=== PATIENT | male | born 1940 | race Caucasian/White ===

== ENCOUNTER 2021-09-09 16:19 | Inpatient (IN) ==
[2021-09-09 16:41] LABS: ABG BASE EXCESS 3.6 mmol/L (-2.0-2.0); ABG HCO3 26.3 mmol/L (22-26)
[2021-09-09 16:42] LABS: ABG ALLEN TEST POS
[2021-09-09] MEDS ORDERED: DUONEB 0.5 MG/3 MG (3 mL) NEB ONE ×2 (16:44→16:48)
[2021-09-09] MEDS ORDERED: NS 1,000 ML IV 1,000 ML IV ONE (17:30)
[2021-09-09 17:38] LABS: BASOPHILS # (AUTO) 0.1 X10^3/uL (0.0-0.1); BASOPHILS % (AUTO) 0.7 % (0.2-1.0); EOSINOPHILS % (AUTO) 0.1 % (0.9-2.9); HEMOGLOBIN 13.3 g/dL (13.5-18.0); LYMPHOCYTES # (AUTO) 1.3 X10^3/uL (1.3-2.9); LYMPHOCYTES % (AUTO) 11.8 % (21.0-51.0); MEAN CORPUSCULAR HEMOGLOBIN 31.6 pg (27.0-34.0); MEAN CORPUSCULAR HGB CONC 34.1 g/dL (33.0-35.0); MEAN CORPUSCULAR VOLUME 92.9 fL (80.0-100.0); MEAN PLATELET VOLUME 7.9 fL (7.4-11.0); MONOCYTES # (AUTO) 0.6 x10^3/uL (0.3-0.8); MONOCYTES % (AUTO) 5.6 % (0.0-13.0); NEUTROPHILS # (AUTO) 9.1 x10^3/uL (2.2-4.8); NEUTROPHILS % (AUTO) 81.8 % (42.0-75.0); RED CELL DISTRIBUTION WIDTH 13.4 % (11.6-16.5); WHITE BLOOD COUNT 11.1 X10^3/uL (3.6-10.0)
[2021-09-09] MEDS ORDERED: NS 1,000 ML IV 1,000 ML ONE (17:46)
[2021-09-09 17:51] LABS: ALANINE AMINOTRANSFERASE 60 Units/L (12-78); ALBUMIN 2.9 g/dL (3.4-5.0); ALKALINE PHOSPHATASE 53 Units/L (46-116); ASPARTATE AMINO TRANSFERASE 71 Units/L (15-37); BLOOD UREA NITROGEN 22 mg/dL (7-18); CALCIUM 8.4 mg/dL (8.5-10.1); CARBON DIOXIDE 27.8 mmol/L (21-32); CHLORIDE 98 mmol/L (98-107); COR CA(FOR HYPOALB) 9.3 mg/dL (8.5-10.1); SODIUM 134 mmol/L (136-145); TOTAL PROTEIN 7.3 g/dL (6.4-8.2); eGFR NON BLACK RACES 52 (>60)
--- NOTE | 2021-09-09 18:13 | RAD ---
HISTORYHYPOXIA COVID+STUDYCHEST x-ray, 1 VIEWCOMPARISONNoneFINDINGSProminent bilateral lung infiltrates are likely due to COVID-19 pneumonia. Heart is probably normal in size. Calcification is seen of the aortic arch. Probable small left pleural effusion. No pneumothorax is seen. Patient is slightly rotated to the left.IMPRESSIONLikely prominent bilateral COVID-19 pneumonia.Electronically signed by: Sean Joseph (Sep 09, 2021 18:13:01)
[2021-09-09 18:24] LABS: BILIRUBIN,URINE NEGATIVE (NEGATIVE); BLOOD/HEMOGLOBIN,URINE NEGATIVE (NEGATIVE); GLUCOSE, URINE NEGATIVE (NEGATIVE); KETONES,URINE NEGATIVE (NEGATIVE); LEUKOCYTE ESTERASE ,URINE NEGATIVE (NEGATIVE); NITRITES,URINE NEGATIVE (NEGATIVE); PROTEIN,URINE 2+ (NEGATIVE); UROBILINOGEN,URINE NORMAL (NORMAL)
--- NOTE | 2021-09-09 18:24 | DR.SOBA ---
HPI Time Seen Time Seen by Provider: 09/09/21 17:16 Primary Care Physician Primary Care Physician: MATTHIAS APPLE HPI Comment HPI Comment: An 81 y/o male presenting with SOB > 10 days. He was tested positive for COVID on 09/03/2021 and started on Prednisone, Z-CORNELIO and Hydrochloroquine. He still was not doing well and went to the ED again ([facility]) on 09/07/2021. This time Doxycycline was added to the regimen and more prednisone was given. He has no fever. Complaints Chief Complaint:: TEST POSITIVE ON FRIDAY FOR COVID, FRIDAY CHEST XRAY SHOWED PNEUMONIA. HE ISN'T EATING AND SLEEPING ALL THE TIME. Self Treatment fo Chief Complaint: AZITHROMYCIN 250MG, HYDROXYCHLOROQUINE 200MG,, , PREDNISONE 10MG STARTD FRIDAY, AND PREDNISONE 20MG, DOXYCLYCLINE 100MG STARTED ON FRIDAY COVID-19 Coronavirus risk:travel/contact w/high risk person: Yes Has patient experienced Coronavirus symptoms: Yes Coronavirus symptoms experienced: Coughing and Shortness of Breath Mode of Arrival Mode of Arrival: Wheelchair Timing Onset of Chief Complaint: 09/01/21 PMH PMH Past Medical History: Yes Past Medical History: Alzheimers and Hypertension Past Medical History Comment: tacycardia,hernia Past Surgical History: Yes Past Surgical History Comment: hital hernia Family History History of Family Medical Conditions: No Social History Type of Tobacco Use: None Does any household member use tobacco: No Do you use any recreational Drugs:: No Lives With: Spouse Lives Where: Home Travel Risk Coronavirus risk:travel/contact w/high risk person: Yes Has patient experienced Coronavirus symptoms: Yes Coronavirus symptoms experienced: Coughing and Shortness of Breath Infectious screening In the last 2 months have you had wt loss of >10#?: NO Have you had fever, night sweats or hemotysis?: No Have you traveled outside the country in the last 6 months?: No Isolation: Droplet PE Vital Signs Vitals: Temperature 98.7 F Pulse Rate 99 Respiratory Rate 24 Blood Pressure 127/60 O2 Sat by Pulse Oximetry 88 COURSE Treatment Treatment: The pt. had been seen and examined. His labs. and CXR report were reviewed with him and his spouse with my recommendation for admission for in- house treatment, having failed oupt. therapy. The pt. and the agrees with htis recommendation. However, his spouse voiced that she does not want him treated with REMDESIVIR. I discussed the pt. with out provider on-call today (Dr. CLEMONS) and he agrees to place the pt. into his service using his PCVID protocol. Reevaluation 1st: Improved Education/Counseling Education/Counseling: Patient, Family, Education and Counseling Educated On: Treatment, Diagnosis, Prognosis and Needs for Follow Up ROR Labs Reviewed Laboratory Results Reviewed?: Yes Result Diagrams: 09/09/21 16:41 09/09/21 16:41 Laboratory: WBC 11.1 X10^3/uL (3.6-10.0) H 09/09/21 16:41 RBC 4.20 X10^6/uL (4.7-6.0) L 09/09/21 16:41 Hgb 13.3 g/dL (13.5-18.0) L 09/09/21 16:41 Hct 39.0 % (42.0-54.0) L 09/09/21 16:41 MCV 92.9 fL (80.0-100.0) 09/09/21 16:41 MCH 31.6 pg (27.0-34.0) 09/09/21 16:41 MCHC 34.1 g/dL (33.0-35.0) 09/09/21 16:41 RDW 13.4 % (11.6-16.5) 09/09/21 16:41 Plt Count 325 X10^3/uL (150.0-450.0) 09/09/21 16:41 MPV 7.9 fL (7.4-11.0) 09/09/21 16:41 Neut % (Auto) 81.8 % (42.0-75.0) H 09/09/21 16:41 Lymph % (Auto) 11.8 % (21.0-51.0) L 09/09/21 16:41 [place] % (Auto) 5.6 % (0.0-13.0) 09/09/21 16:41 Eos % (Auto) 0.1 % (0.9-2.9) L 09/09/21 16:41 Baso % (Auto) 0.7 % (0.2-1.0) 09/09/21 16:41 Neut # (Auto) 9.1 x10^3/uL (2.2-4.8) H 09/09/21 16:41 Lymph # (Auto) 1.3 X10^3/uL (1.3-2.9) 09/09/21 16:41 [place] # (Auto) 0.6 x10^3/uL (0.3-0.8) 09/09/21 16:41 Eos # (Auto) 0.0 x10^3/uL (0.0-0.2) 09/09/21 16:41 Baso # (Auto) 0.1 X10^3/uL (0.0-0.1) 09/09/21 16:41 Absolute Nucleated RBC 0.3 /100WBC 09/09/21 16:41 Sample Site Rrad 09/09/21 16:37 ABG pH 7.510 (7.35-7.45) H 09/09/21 16:37 ABG pCO2 33.0 mmHg (35.0-45.0) L 09/09/21 16:37 ABG pO2 46.0 mmHg (80.0-100.0) L* 09/09/21 16:37 ABG HCO3 26.3 mmol/L (22-26) H 09/09/21 16:37 ABG O2 Saturation 86.0 % (90-100) L 09/09/21 16:37 ABG Base Excess 3.6 mmol/L (-2.0-2.0) H 09/09/21 16:37 [place] Test Pos 09/09/21 16:37 A-a Gradient 62.0 mmHg 09/09/21 16:37 FiO2 21.0 09/09/21 16:37 Blood Gas Comments Pt riky well elj 09/09/21 16:37 Sodium 134 mmol/L (136-145) L 09/09/21 16:41 Corrected Sodium TNP 09/09/21 16:41 Potassium 4.2 mmol/L (3.5-5.1) 09/09/21 16:41 Chloride 98 mmol/L (98-107) 09/09/21 16:41 Carbon Dioxide 27.8 mmol/L (21-32) 09/09/21 16:41 BUN 22 mg/dL (7-18) H 09/09/21 16:41 Creatinine 1.40 mg/dL (0.70-1.30) H 09/09/21 16:41 Est GFR (MDRD) Af Amer > 60 (>60) 09/09/21 16:41 Est GFR (MDRD) Non-Af 52 (>60) L 09/09/21 16:41 Glucose 93 mg/dL (65-99) 09/09/21 16:41 Calcium 8.4 mg/dL (8.5-10.1) L 09/09/21 16:41 Corrected Calcium 9.3 mg/dL (8.5-10.1) 09/09/21 16:41 Total Bilirubin 0.50 mg/dL (0.2-1.0) 09/09/21 16:41 AST 71 Units/L (15-37) H 09/09/21 16:41 ALT 60 Units/L (12-78) 09/09/21 16:41 Alkaline Phosphatase 53 Units/L (46-116) 09/09/21 16:41 Total Protein 7.3 g/dL (6.4-8.2) 09/09/21 16:41 Albumin 2.9 g/dL (3.4-5.0) L 09/09/21 16:41 Globulin 4.4 g/dL (2.5-4.5) 09/09/21 16:41 Albumin/Globulin Ratio 0.7 Ratio (1.1-2.1) L 09/09/21 16:41 EKG Rate: 88 [place]: Normal Rhythm: NSR Block: None Hypertrophy: None ST: Normal Opioid Opioid Risk Tool Age (Shady box if 16-45): No History of Preadolescent Sexual Abuse: No Total: 0 Total Score Risk Category: Low Risk Copyright: [facility] predicting aberrant behaviors Diagnosis Discharge Problem: Pneumonia due to 2019-nCoV Respiratory failure with hypoxia Qualifiers: Chronicity: acute Qualified Code(s): J96.01 - Acute respiratory failure with hypoxia Instructions Forms: Precautions for COVID19 [facility] Patient Portal Social Distancing ADDITIONAL NOTES Additional Notes Additional Notes: Name: SERGIO CLEMENT FAcct#: [id number]: [id number] : 1940Sex: MLocation: ER Order Number(s): [id number](s):CHEST, 1 VIEW Ordering Physician: CANDIDO MARTINEZ Primary Care: MATTHIAS APPLE Service Date: 09/09/21 Service Time: 1729 HISTORY HYPOXIA COVID+ STUDY CHEST x-ray, 1 VIEW COMPARISON None FINDINGS Prominent bilateral lung infiltrates are likely due to COVID-19 pneumonia. Heart is probably normal in size. Calcification is seen of the aortic arch. Probable small left pleural effusion. No pneumothorax is seen. Patient is slightly rotated to the left. IMPRESSION Likely prominent bilateral COVID-19 pneumonia. Electronically signed by: Sean Joseph (Sep 09, 2021 18:13:01) Report Electronically signed: 09/09/[id number] CC: Candido Martinez
[2021-09-09 18:50] LABS: APPEARANCE,URINE CLEAR (CLEAR); COLOR,URINE YELLOW (YELLOW)
[2021-09-09 18:51] LABS: BACTERIA,URINE NEGATIVE /HPF (NEGATIVE); RBC,URINE NONE SEEN /HPF (0-3); SQUAMOUS EPITHELIAL CELL,UR RARE /HPF (NEGATIVE)
[2021-09-09] MEDS ORDERED: ROCEPHIN VIAL 2 GRAMS 2 G in NS 100 ML IV + SPIKE MINIBAG* 100 ML IV SCH (18:53)
[2021-09-09] MEDS ORDERED: PHARMACY CONSULT - LOVENOX XX SCH (19:20)
[2021-09-09] MEDS ORDERED: PHARMACY CONSULT - IVERMECTIN XX SCH (19:20)
[2021-09-09] MEDS ORDERED: PERIACTIN TAB 4 MG PO PRN (19:20)
[2021-09-09] MEDS ORDERED: PULMICORT NEB TX 0.5 MG NEB ONE (19:54)
[2021-09-09] MEDS ORDERED: BROVANA ONE (19:54)
[2021-09-09] MEDS ORDERED: ROCEPHIN VIAL 2 GRAMS ONE (20:21)
[2021-09-09] MEDS ORDERED: NS 100 ML IV 100 ML ONE (20:21)
[2021-09-09 20:22] VITALS: BMI 27.8
[2021-09-09] MEDS ORDERED: BROVANA IN SCH (21:00)
[2021-09-09] MEDS ORDERED: HEPARIN SODIUM INJ 5000 UNITS SC SCH (21:00)
[2021-09-09] MEDS ORDERED: PULMICORT NEB TX 0.5 MG NEB SCH (21:00)
[2021-09-09] MEDS: NS 1,000 ML IV 1,000 ML IV SCH (21:12)
[2021-09-09] MEDS: PULMICORT NEB TX 0.5 MG NEB SCH (21:13)
[2021-09-09] MEDS: ROCEPHIN VIAL 2 GRAMS 2 G in NS 100 ML IV 100 ML IV SCH (21:13)
[2021-09-09] MEDS: BROVANA IN SCH (21:13)
[2021-09-09] MEDS: IVERMECTIN PO SCH (21:15)
[2021-09-09] MEDS: PEPCID TAB 40 MG PO SCH (21:16)
[2021-09-09] MEDS: CYTOTEC PO SCH (21:16)
[2021-09-09] MEDS: MELATONIN PO SCH (21:16)
[2021-09-09] MEDS: LOVENOX INJ 100 MG SYR SC SCH (21:17)
[2021-09-09] MEDS: ZINC SULFATE PO SCH (21:17)
[2021-09-09] MEDS: THIAMINE HCL INJ IVP SCH (21:18)
[2021-09-09] MEDS: SOLU-Medrol 125 MG VIAL IVP SCH (21:19)
[2021-09-09] MEDS: PROTONIX INJ 40 MG VIAL IVP SCH (21:20)
[2021-09-09] MEDS: ASCORBIC ACID INJ MULTI-DOSE VIAL 1,500 MG in NS 100 ML IV 100 ML IV SCH (21:54)
[2021-09-10] MEDS: ASCORBIC ACID INJ MULTI-DOSE VIAL 1,500 MG in NS 100 ML IV 100 ML IV SCH ×2 (02:01→09:00)
[2021-09-10] MEDS: SOLU-Medrol 125 MG VIAL IVP SCH ×4 (02:01→20:06)
[2021-09-10 05:24] LABS: BASOPHILS % (AUTO) 0.7 % (0.2-1.0); EOSINOPHILS % (AUTO) 0.1 % (0.9-2.9); HEMATOCRIT 33.6 % (42.0-54.0); HEMOGLOBIN 11.6 g/dL (13.5-18.0); LYMPHOCYTES # (AUTO) 0.4 X10^3/uL (1.3-2.9); LYMPHOCYTES % (AUTO) 5.6 % (21.0-51.0); MEAN CORPUSCULAR HEMOGLOBIN 31.8 pg (27.0-34.0); MEAN CORPUSCULAR HGB CONC 34.5 g/dL (33.0-35.0); MEAN CORPUSCULAR VOLUME 92.3 fL (80.0-100.0); MEAN PLATELET VOLUME 8.1 fL (7.4-11.0); MONOCYTES # (AUTO) 0.2 x10^3/uL (0.3-0.8); NEUTROPHILS # (AUTO) 6.1 x10^3/uL (2.2-4.8); NEUTROPHILS % (AUTO) 90.6 % (42.0-75.0); RED BLOOD COUNT 3.64 X10^6/uL (4.7-6.0); RED CELL DISTRIBUTION WIDTH 13.6 % (11.6-16.5); WHITE BLOOD COUNT 6.7 X10^3/uL (3.6-10.0)
[2021-09-10 05:31] LABS: ALANINE AMINOTRANSFERASE 48 Units/L (12-78); ALBUMIN 2.4 g/dL (3.4-5.0); ALKALINE PHOSPHATASE 47 Units/L (46-116); ASPARTATE AMINO TRANSFERASE 49 Units/L (15-37); BLOOD UREA NITROGEN 19 mg/dL (7-18); CALCIUM 7.3 mg/dL (8.5-10.1); CARBON DIOXIDE 24.3 mmol/L (21-32); CHLORIDE 97 mmol/L (98-107); COR CA(FOR HYPOALB) 8.6 mg/dL (8.5-10.1); COR NA(FOR HYPERGLY) 137 mmol/L (136-145); CREATININE 1.28 mg/dL (0.70-1.30); SODIUM 135 mmol/L (136-145); TOTAL PROTEIN 5.6 g/dL (6.4-8.2); eGFR NON BLACK RACES 57 (>60)
[2021-09-10 06:06] LABS: PLATELET MORPHOLOGY COMMENT NORMAL (NORMAL)
[2021-09-10] MEDS: BROVANA IN SCH ×2 (07:50→20:49)
[2021-09-10] MEDS: PULMICORT NEB TX 0.5 MG NEB SCH ×2 (07:50→20:49)
[2021-09-10] MEDS: THIAMINE HCL INJ IVP SCH ×2 (09:00→20:05)
[2021-09-10] MEDS: PROTONIX INJ 40 MG VIAL IVP SCH ×2 (09:00→20:10)
[2021-09-10] MEDS: LIPITOR TAB 80 MG PO SCH (09:00)
[2021-09-10] MEDS: PEPCID TAB 40 MG PO SCH ×2 (09:00→20:07)
[2021-09-10] MEDS: ZINC SULFATE PO SCH ×2 (09:00→20:05)
[2021-09-10] MEDS: LOVENOX INJ 100 MG SYR SC SCH ×2 (09:00→20:08)
[2021-09-10] MEDS: CYTOTEC PO SCH ×4 (09:00→20:05)
[2021-09-10] MEDS: IVERMECTIN PO SCH (09:00)
[2021-09-10] MEDS: TAB-A-VITE PO SCH (11:05)
[2021-09-10] MEDS: FLOMAX PO SCH (11:05)
[2021-09-10] MEDS: NEURONTIN CAP 300 MG PO SCH (11:06)
[2021-09-10] MEDS: NAMENDA TAB 10 MG PO SCH ×2 (11:06→20:07)
[2021-09-10] MEDS: ASCORBIC ACID INJ MULTI-DOSE VIAL 1,500 MG in NS 50 ML IV 50 ML IV SCH ×2 (15:00→20:04)
[2021-09-10] MEDS ORDERED: LUVOX ONE (19:42)
[2021-09-10] MEDS: MELATONIN PO SCH (20:05)
[2021-09-10] MEDS: ROCEPHIN VIAL 2 GRAMS 2 G in NS 100 ML IV 100 ML IV SCH (20:06)
[2021-09-10] MEDS: LUVOX PO SCH (20:07)
[2021-09-10] MEDS: NS 1,000 ML IV 1,000 ML IV SCH (21:24)
[2021-09-11] MEDS: ASCORBIC ACID INJ MULTI-DOSE VIAL 1,500 MG in NS 50 ML IV 50 ML IV SCH ×4 (03:01→20:16)
[2021-09-11] MEDS: SOLU-Medrol 125 MG VIAL IVP SCH ×4 (03:02→20:19)
[2021-09-11 05:58] LABS: ALANINE AMINOTRANSFERASE 48 Units/L (12-78); ALBUMIN 2.3 g/dL (3.4-5.0); ALKALINE PHOSPHATASE 41 Units/L (46-116); ASPARTATE AMINO TRANSFERASE 41 Units/L (15-37); BLOOD UREA NITROGEN 23 mg/dL (7-18); CALCIUM 7.4 mg/dL (8.5-10.1); CARBON DIOXIDE 23.7 mmol/L (21-32); CHLORIDE 98 mmol/L (98-107); COR CA(FOR HYPOALB) 8.8 mg/dL (8.5-10.1); COR NA(FOR HYPERGLY) 135 mmol/L (136-145); SODIUM 134 mmol/L (136-145); TOTAL PROTEIN 6.1 g/dL (6.4-8.2); eGFR NON BLACK RACES > 60 (>60)
[2021-09-11 05:59] LABS: BASOPHILS % (AUTO) 0.2 % (0.2-1.0); HEMOGLOBIN 11.1 g/dL (13.5-18.0); LYMPHOCYTES # (AUTO) 0.7 X10^3/uL (1.3-2.9); LYMPHOCYTES % (AUTO) 6.2 % (21.0-51.0); MEAN CORPUSCULAR HEMOGLOBIN 31.8 pg (27.0-34.0); MEAN CORPUSCULAR HGB CONC 34.5 g/dL (33.0-35.0); MEAN CORPUSCULAR VOLUME 91.9 fL (80.0-100.0); MEAN PLATELET VOLUME 7.8 fL (7.4-11.0); MONOCYTES # (AUTO) 0.6 x10^3/uL (0.3-0.8); MONOCYTES % (AUTO) 5.2 % (0.0-13.0); NEUTROPHILS # (AUTO) 10.2 x10^3/uL (2.2-4.8); NEUTROPHILS % (AUTO) 88.4 % (42.0-75.0); RED BLOOD COUNT 3.49 X10^6/uL (4.7-6.0); RED CELL DISTRIBUTION WIDTH 13.7 % (11.6-16.5); WHITE BLOOD COUNT 11.6 X10^3/uL (3.6-10.0)
[2021-09-11] MEDS ORDERED: K-RIDER 10 MEQ/NS 100 ML 10 MEQ/100 ML BAG IV PRN (07:36)
[2021-09-11] MEDS ORDERED: KLOR-CON PO PRN (07:36)
[2021-09-11] MEDS ORDERED: POTASSIUM CHLORIDE LIQ 20 MEQ UDC PO PRN (07:36)
[2021-09-11] MEDS ORDERED: POTASSIUM CHL 40 MEQ/NS 0.45% 500 ML IV PRN (07:36)
[2021-09-11] MEDS ORDERED: POTASSIUM CHL 60 MEQ/NS 0.45% 500 ML IV PRN (07:36)
[2021-09-11] MEDS ORDERED: MICRO K EXTEN CAP 10 MEQ PO PRN (07:36)
[2021-09-11] MEDS: PULMICORT NEB TX 0.5 MG NEB SCH ×2 (08:24→20:40)
[2021-09-11] MEDS: BROVANA IN SCH ×2 (08:24→20:40)
[2021-09-11] MEDS: CYTOTEC PO SCH ×4 (08:56→20:18)
[2021-09-11] MEDS: FLOMAX PO SCH (08:56)
[2021-09-11] MEDS: LIPITOR TAB 80 MG PO SCH (08:57)
[2021-09-11] MEDS: IVERMECTIN PO SCH (08:57)
[2021-09-11] MEDS: LUVOX PO SCH ×2 (08:58→20:18)
[2021-09-11] MEDS: NAMENDA TAB 10 MG PO SCH ×2 (08:58→20:21)
[2021-09-11] MEDS: PEPCID TAB 40 MG PO SCH ×2 (08:59→20:19)
[2021-09-11] MEDS: PROTONIX INJ 40 MG VIAL IVP SCH ×2 (08:59→20:20)
[2021-09-11] MEDS: NEURONTIN CAP 300 MG PO SCH (08:59)
[2021-09-11] MEDS: TAB-A-VITE PO SCH (09:00)
[2021-09-11] MEDS: VITAMIN D3 125 mcg (5,000 UNITS) PO SCH (09:00)
[2021-09-11] MEDS: THIAMINE HCL INJ IVP SCH ×2 (09:00→20:19)
[2021-09-11] MEDS: LOVENOX INJ 100 MG SYR SC SCH ×2 (09:01→20:20)
[2021-09-11] MEDS: ZINC SULFATE PO SCH ×2 (09:01→20:18)
[2021-09-11] MEDS: VITAMIN A PO SCH (10:43)
[2021-09-11] MEDS: K-DUR TAB 20 MEQ PO PRN (12:09)
[2021-09-11] MEDS: NS 1,000 ML IV 1,000 ML IV SCH (20:16)
[2021-09-11] MEDS: MELATONIN PO SCH (20:19)
[2021-09-11] MEDS: ROCEPHIN VIAL 2 GRAMS 2 G in NS 100 ML IV 100 ML IV SCH (20:21)
[2021-09-11] MEDS ORDERED: RESTORIL CAP 15 MG PO PRN (20:44)
[2021-09-12] MEDS: SOLU-Medrol 125 MG VIAL IVP SCH (02:11)
[2021-09-12] MEDS: ASCORBIC ACID INJ MULTI-DOSE VIAL 1,500 MG in NS 50 ML IV 50 ML IV SCH (02:11)
[2021-09-12] MEDS ORDERED: TYLENOL 325 MG TAB PO ONE (04:23)
[2021-09-12] MEDS: TYLENOL 325 MG TAB PO PRN (05:10)
[2021-09-12 06:26] LABS: BASOPHILS % (AUTO) 0.1 % (0.2-1.0); HEMATOCRIT 30.4 % (42.0-54.0); HEMOGLOBIN 10.7 g/dL (13.5-18.0); LYMPHOCYTES # (AUTO) 0.5 X10^3/uL (1.3-2.9); LYMPHOCYTES % (AUTO) 4.6 % (21.0-51.0); MEAN CORPUSCULAR HEMOGLOBIN 32.1 pg (27.0-34.0); MEAN CORPUSCULAR VOLUME 91.8 fL (80.0-100.0); MEAN PLATELET VOLUME 7.7 fL (7.4-11.0); MONOCYTES # (AUTO) 0.5 x10^3/uL (0.3-0.8); MONOCYTES % (AUTO) 4.4 % (0.0-13.0); NEUTROPHILS # (AUTO) 10.4 x10^3/uL (2.2-4.8); NEUTROPHILS % (AUTO) 90.9 % (42.0-75.0); RED BLOOD COUNT 3.31 X10^6/uL (4.7-6.0); RED CELL DISTRIBUTION WIDTH 13.5 % (11.6-16.5); WHITE BLOOD COUNT 11.4 X10^3/uL (3.6-10.0)
[2021-09-12 06:44] LABS: ALANINE AMINOTRANSFERASE 59 Units/L (12-78); ALBUMIN 2.2 g/dL (3.4-5.0); ALKALINE PHOSPHATASE 44 Units/L (46-116); ASPARTATE AMINO TRANSFERASE 43 Units/L (15-37); BLOOD UREA NITROGEN 25 mg/dL (7-18); CALCIUM 7.2 mg/dL (8.5-10.1); CARBON DIOXIDE 22.9 mmol/L (21-32); CHLORIDE 100 mmol/L (98-107); COR CA(FOR HYPOALB) 8.6 mg/dL (8.5-10.1); COR NA(FOR HYPERGLY) 134 mmol/L (136-145); CREATININE 1.06 mg/dL (0.70-1.30); SODIUM 133 mmol/L (136-145); TOTAL PROTEIN 5.8 g/dL (6.4-8.2); eGFR NON BLACK RACES > 60 (>60)
[2021-09-12 07:09] LABS: PLATELET MORPHOLOGY COMMENT NORMAL (NORMAL)
[2021-09-12] MEDS: PROTONIX INJ 40 MG VIAL IVP SCH ×2 (08:12→20:21)
[2021-09-12] MEDS: THIAMINE HCL INJ IVP SCH ×2 (08:12→20:20)
[2021-09-12] MEDS: K-DUR TAB 20 MEQ PO PRN ×2 (08:13→20:19)
[2021-09-12] MEDS: CYTOTEC PO SCH ×4 (08:14→20:22)
[2021-09-12] MEDS: IVERMECTIN PO SCH (08:14)
[2021-09-12] MEDS: TAB-A-VITE PO SCH (08:14)
[2021-09-12] MEDS: NAMENDA TAB 10 MG PO SCH ×2 (08:14→20:22)
[2021-09-12] MEDS: VITAMIN A PO SCH (08:15)
[2021-09-12] MEDS: ZINC SULFATE PO SCH ×2 (08:15→20:20)
[2021-09-12] MEDS: PEPCID TAB 40 MG PO SCH ×2 (08:16→20:21)
[2021-09-12] MEDS: NEURONTIN CAP 300 MG PO SCH (08:16)
[2021-09-12] MEDS: LUVOX PO SCH ×2 (08:16→20:19)
[2021-09-12] MEDS: VITAMIN D3 125 mcg (5,000 UNITS) PO SCH (08:17)
[2021-09-12] MEDS: LIPITOR TAB 80 MG PO SCH (08:17)
[2021-09-12] MEDS: FLOMAX PO SCH (08:20)
[2021-09-12] MEDS: NS 1,000 ML IV 1,000 ML with ASCORBIC ACID INJ MULTI-DOSE VIAL 6,000 MG IV SCH ×2 (08:44)
[2021-09-12] MEDS: SOLU-Medrol 40 MG VIAL IVP SCH ×3 (08:44→20:20)
[2021-09-12] MEDS: BROVANA IN SCH ×2 (08:51→20:37)
[2021-09-12] MEDS: PULMICORT NEB TX 0.5 MG NEB SCH ×2 (08:51→20:37)
[2021-09-12] MEDS ORDERED: MAGNESIUM SULFATE 1 GRAM/100 mL PREMIX 1 G/100 ML BAG IV PRN (09:54)
[2021-09-12] MEDS: LOVENOX INJ 100 MG SYR SC SCH ×2 (10:35→20:20)
[2021-09-12] MEDS: ZESTRIL TAB 40 MG PO SCH (12:02)
[2021-09-12] MEDS ORDERED: NS 500 ML IV 500 ML IV PRN (20:17)
[2021-09-12] MEDS ORDERED: NS 500 ML IV 500 ML IV ONE (20:17)
[2021-09-12] MEDS: MELATONIN PO SCH (20:19)
[2021-09-12] MEDS: ROCEPHIN VIAL 2 GRAMS 2 G in NS 100 ML IV 100 ML IV SCH (20:20)
[2021-09-13] MEDS: TYLENOL 325 MG TAB PO PRN (02:52)
[2021-09-13] MEDS: SOLU-Medrol 40 MG VIAL IVP SCH (03:00)
[2021-09-13 05:43] LABS: BASOPHILS % (AUTO) 0.2 % (0.2-1.0); EOSINOPHILS % (AUTO) 0.1 % (0.9-2.9); HEMATOCRIT 31.5 % (42.0-54.0); LYMPHOCYTES # (AUTO) 0.5 X10^3/uL (1.3-2.9); LYMPHOCYTES % (AUTO) 3.6 % (21.0-51.0); MEAN CORPUSCULAR HEMOGLOBIN 32.2 pg (27.0-34.0); MEAN CORPUSCULAR HGB CONC 34.8 g/dL (33.0-35.0); MEAN CORPUSCULAR VOLUME 92.5 fL (80.0-100.0); MEAN PLATELET VOLUME 7.4 fL (7.4-11.0); MONOCYTES # (AUTO) 0 x10^3/uL (0.3-0.8); MONOCYTES % (AUTO) 0.2 % (0.0-13.0); NEUTROPHILS # (AUTO) 12.1 x10^3/uL (2.2-4.8); NEUTROPHILS % (AUTO) 95.9 % (42.0-75.0); RED CELL DISTRIBUTION WIDTH 13.4 % (11.6-16.5); WHITE BLOOD COUNT 12.6 X10^3/uL (3.6-10.0)
[2021-09-13 05:47] LABS: ALANINE AMINOTRANSFERASE 87 Units/L (12-78); ALBUMIN 2.2 g/dL (3.4-5.0); ALKALINE PHOSPHATASE 53 Units/L (46-116); ASPARTATE AMINO TRANSFERASE 78 Units/L (15-37); BLOOD UREA NITROGEN 29 mg/dL (7-18); CALCIUM 7.2 mg/dL (8.5-10.1); CARBON DIOXIDE 23.6 mmol/L (21-32); CHLORIDE 102 mmol/L (98-107); COR CA(FOR HYPOALB) 8.6 mg/dL (8.5-10.1); COR NA(FOR HYPERGLY) 136 mmol/L (136-145); SODIUM 135 mmol/L (136-145); TOTAL PROTEIN 5.7 g/dL (6.4-8.2); eGFR NON BLACK RACES > 60 (>60)
[2021-09-13 06:05] LABS: PLATELET MORPHOLOGY COMMENT NORMAL (NORMAL)
[2021-09-13] MEDS: BROVANA IN SCH (08:50)
[2021-09-13] MEDS: PULMICORT NEB TX 0.5 MG NEB SCH (08:50)
[2021-09-13] MEDS ORDERED: DECADRON TAB PO SCH (09:00)
[2021-09-13] MEDS ORDERED: CARDIZEM CD 240 MG 24-HR PO SCH (09:00)
[2021-09-13] MEDS: NS 1,000 ML IV 1,000 ML with ASCORBIC ACID INJ MULTI-DOSE VIAL 6,000 MG IV SCH ×2 (09:00)
[2021-09-13] MEDS ORDERED: ELIQUIS PO SCH (09:00)
[2021-09-13] MEDS: CYTOTEC PO SCH ×2 (09:58→15:06)
[2021-09-13] MEDS: IVERMECTIN PO SCH (09:59)
[2021-09-13] MEDS: FLOMAX PO SCH (09:59)
[2021-09-13] MEDS: ZINC SULFATE PO SCH (10:00)
[2021-09-13] MEDS: PROTONIX INJ 40 MG VIAL IVP SCH (10:00)
[2021-09-13] MEDS: THIAMINE HCL INJ IVP SCH (10:00)
[2021-09-13] MEDS: ZESTRIL TAB 40 MG PO SCH (10:00)
[2021-09-13] MEDS: LIPITOR TAB 80 MG PO SCH (10:00)
[2021-09-13] MEDS: NAMENDA TAB 10 MG PO SCH (10:00)
[2021-09-13] MEDS: PEPCID TAB 40 MG PO SCH (10:00)
[2021-09-13] MEDS: VITAMIN D3 125 mcg (5,000 UNITS) PO SCH (10:00)
[2021-09-13] MEDS: NEURONTIN CAP 300 MG PO SCH (10:00)
[2021-09-13] MEDS: VITAMIN A PO SCH (10:00)
[2021-09-13] MEDS: TAB-A-VITE PO SCH (10:00)
[2021-09-13] MEDS: LUVOX PO SCH (10:00)
[2021-09-13 15:11] VITALS: BP 149/79
== END 2021-09-13 14:45 | disposition home health service (06) | DRG 177 ==
LOC: ER 16:26 → ICU 18:56
PROVIDERS: ADMIT Obstetrics & Gynecology Obstetrics; ATTEND Obstetrics & Gynecology Obstetrics
DX: J12.82 Pneumonia due to coronavirus disease 2019; R79.82 Elevated C-reactive protein (CRP); R06.02 Shortness of breath; R73.09 Other abnormal glucose; I10 Essential (primary) hypertension; U07.1 COVID-19; F03.90 Unspecified dementia, unspecified severity, without behavioral disturbance, psychotic disturbance, mood disturbance, and anxiety

== ENCOUNTER 2022-01-07 10:58 | Observation (INO) ==
[2022-01-07 11:09] VITALS: BMI 27.4
--- NOTE | 2022-01-07 12:52 | DR.DIZZY ---
HPI Time seen Time Seen by Provider: 01/07/22 12:52 PCP Primary Care Physician: VALARIE Underwood HPI Comment HPI Comment: PATIENT IS 81YR OLD MALE IN ER WITH DIZZINESS AND LOW BP TIMES ONE DAY. HISTORY HYPERTENSION. TOOK BP MED LAST NIGHT. DENIES TRAUMA, HEADACHE OR FEVER. NO NAUSEA, VOMITING OR DIARRHEA. NO DYSURIA. COUGH OR CONGESTION. HAVING 4/10 ACHING PAIN LEFT ARM AND SHOULDER. Complaint Chief Complaint Doctor Comments: DIZZINESS, WEAKNESS AND LOW BLOOD PRESSURE TIMES ONE DAY. Chief Complaint:: "feeling weak and dizzy, low blood pressure x 1 day" Self Treatment fo Chief Complaint: liquid IV Nurses Notes Reviewed Nurses Notes Review: Yes Source History Provided: Patient and Significant Other Mode of Arrival Mode of Arrival: Wheelchair Timing Onset of Chief Complaint: 01/06/22 Came on: Suddenly Onset of Symptoms Start Date: 03/08/22 Duration Duration: Constant How lon Duration: Days Location of Weakness Weakness Location: Generalized Context Onset: At rest Does pt take pot. toxic medication?: No Stroke Symptoms: None Modifying factors Worsens: Other (EXERTION.) Associated signs and symptoms Associated Signs and Symptoms: Near Syncope, Weak and Other (DIZZY.) PMH PMH Past Medical History: Yes Past Medical History: Alzheimers, Hypertension and Ventricular Tachycardia Past Surgical History: Yes Past Surgical History Comment: hernia Family History History of Family Medical Conditions: No Family Medical History: Coronary Artery Disease and Hypertension Social History Does patient currently use any type of tobacco product: No Have you used tobacco products in the last 12 months: No Type of Tobacco Use: None Does any household member use tobacco: No Alcohol Use: Occasionally Do you use any recreational Drugs:: No Lives With: Spouse Lives Where: Home Infectious screening In the last 2 months have you had wt loss of >10#?: NO Have you had fever, night sweats or hemotysis?: No Have you traveled outside the country in the last 6 months?: No Isolation: Standard ROS Review of Systems Constitutional: See HPI, Weakness and Fatigue; negative Fever Eyes: No Symptoms Reported and See HPI ENTM: No Symptoms Reported and See HPI Respiratoy: No Symptoms Reported and See HPI; negative Moist Cough, Short of Breath or Wheezing Cardiovascular: See HPI; negative Chest Pain or Syncope (NEAR SYNCOPY.) Gastrointestinal/Abdominal: No Symptoms Reported and See HPI; negative Abdominal Pain, Diarrhea, Nausea or Vomiting Genitourinary: No Symptoms Reported and See HPI; negative Dysuria or Hematuria Neurological: See HPI, Weakness and Dizziness; negative Headache Musculoskeletal: See HPI and Back Pain; negative Muscle Pain Integumentary: No Symptoms Reported and See HPI; negative Rash or Juandice Hematologic/Lymphatic: No Symptoms Reported and See HPI; negative Easy Bruising Endocrine: No Symptoms Reported and See HPI; negative Increased Thirst or Increa sed Urine Psychiatric: No Symptoms Reported and See HPI All Other Systems: Reviewed and Negative PE Vital Signs Vitals: Temperature 97.2 F Pulse Rate 69 Respiratory Rate 20 Blood Pressure [Right Arm] 133/61 Blood Pressure 113/64 O2 Sat by Pulse Oximetry 96 General Limitations: No Limitations General Appearance: Alert and In No Apparent Distress Head Head Exam: Normal Inspection and Atraumatic Eyes Eye exam: Normal Appearance ENT ENT Exam: Normal Exam, Normal Oropharynx and Normal External Ear Exam Neck Neck Exam: Normal Inspection and Full ROM Chest Chest Inspection: Normal Inspection Respiratory Respiratory Exam: Normal Lung Sounds Bilat Cardiovascular Cardiovascular Exam: Regular Rate and Normal Rhythm Abdominal Exam Abdominal Exam: Normal Inspection, Normal Bowel Sounds and Soft Rectal Rectal Exam: Deferred Extremeties Extremities Exam: Normal Inspection and Full ROM Back Back Exam: Normal Inspection and Full ROM Neurologic Neurological Exam: Alert and Oriented X3 Patient Oriented To: Person, Place and Time Speech: Fluid Speech Cranial Nerve Exam: EOM Function (II, III, IV, ): Normal, Gag reflex (XI): Normal and Tongue Deviation: Normal Motor Strength - LUE: 5/5 Motor Strength - RUE: 5/5 Motor Strength - LLE: 5/5 Motor Strength - RLE: 5/5 Upper Motor Neuron Exam: Babinski Sign: Normal Psychiatric Psychiatric Exam: Normal Affect and Normal Mood Skin Skin Exam: Warm, Dry, Intact and Normal Color MDM Differential Diagnosis Differential Diagnosis: Anemia, CVA, Dehydration, Dysrhythmia, Electrolyte disorder, Hypoglycemia, Labyrinthitis, Myocardial infarction and TIA COURSE Treatment Treatment: SEE ORDERS DONE WHILE PATIENT WAS IN ER. Consultation Consultation Comments: DISCUSSED PATIENT WITH DR. NICHOLAS. HR WILL ADMIT PATIENT. Education/Counseling Education/Counseling: Patient and Family Educated On: Treatment and Diagnosis ROR Labs Reviewed Laboratory Results Reviewed?: Yes Result Diagrams: 01/09/22 04:43 01/09/22 11:09 Laboratory: WBC 8.4 X10^3/uL (3.6-10.0) 01/07/22 13:45 RBC 4.17 X10^6/uL (4.7-6.0) L 01/07/22 13:45 Hgb 13.4 g/dL (13.5-18.0) L 01/07/22 13:45 Hct 39.6 % (42.0-54.0) L 01/07/22 13:45 MCV 94.9 fL (80.0-100.0) 01/07/22 13:45 MCH 32.1 pg (27.0-34.0) 01/07/22 13:45 MCHC 33.9 g/dL (33.0-35.0) 01/07/22 13:45 RDW 13.2 % (11.6-16.5) 01/07/22 13:45 Plt Count 211 X10^3/uL (150.0-450.0) 01/07/22 13:45 MPV 9.1 fL (7.4-11.0) 01/07/22 13:45 Neut % (Auto) 42.9 % (42.0-75.0) 01/07/22 13:45 Lymph % (Auto) 46.0 % (21.0-51.0) 01/07/22 13:45 [place] % (Auto) 8.8 % (0.0-13.0) 01/07/22 13:45 Eos % (Auto) 1.2 % (0.9-2.9) 01/07/22 13:45 Baso % (Auto) 1.1 % (0.2-1.0) H 01/07/22 13:45 Neut # (Auto) 3.6 x10^3/uL (2.2-4.8) 01/07/22 13:45 Lymph # (Auto) 3.9 X10^3/uL (1.3-2.9) H 01/07/22 13:45 [place] # (Auto) 0.7 x10^3/uL (0.3-0.8) 01/07/22 13:45 Eos # (Auto) 0.1 x10^3/uL (0.0-0.2) 01/07/22 13:45 Baso # (Auto) 0.1 X10^3/uL (0.0-0.1) 01/07/22 13:45 Absolute Nucleated RBC 0.0 /100WBC 01/07/22 13:45 Sodium 139 mmol/L (136-145) 01/07/22 13:45 Corrected Sodium TNP 01/07/22 13:45 Potassium 4.5 mmol/L (3.5-5.1) 01/07/22 13:45 Chloride 100 mmol/L (98-107) 01/07/22 13:45 Carbon Dioxide 32.6 mmol/L (21-32) H 01/07/22 13:45 BUN 29 mg/dL (7-18) H 01/07/22 13:45 Creatinine 1.59 mg/dL (0.70-1.30) H 01/07/22 13:45 Est GFR (MDRD) Af Amer 54 (>60) L 01/07/22 13:45 Est GFR (MDRD) Non-Af 45 (>60) L 01/07/22 13:45 Glucose 103 mg/dL (65-99) H 01/07/22 13:45 Calcium 10.0 mg/dL (8.5-10.1) 01/07/22 13:45 Corrected Calcium TNP 01/07/22 13:45 Total Bilirubin 0.30 mg/dL (0.2-1.0) 01/07/22 13:45 AST 27 Units/L (15-37) 01/07/22 13:45 ALT 39 Units/L (12-78) 01/07/22 13:45 Alkaline Phosphatase 71 Units/L (46-116) 01/07/22 13:45 Creatine Kinase 85 Units/L (39-308) 01/07/22 13:45 CK-MB (CK-2) < 1.0 ng/mL (0-4.0) 01/07/22 13:45 CK/CKMB % Calc 1.2 % (<4) 01/07/22 13:45 Troponin I High Sens 10.4 ng/L (4.0-60.0) 01/07/22 13:45 B-Natriuretic Peptide 88.3 pg/mL (0-79) H 01/07/22 13:45 Total Protein 7.2 g/dL (6.4-8.2) 01/07/22 13:45 Albumin 3.9 g/dL (3.4-5.0) 01/07/22 13:45 Globulin 3.3 g/dL (2.5-4.5) 01/07/22 13:45 Albumin/Globulin Ratio 1.2 Ratio (1.1-2.1) 01/07/22 13:45 Specimen Type Clean catch urine 01/07/22 13:30 Urine Color Yellow (YELLOW) 01/07/22 13:30 Urine Appearance Clear (CLEAR) 01/07/22 13:30 Urine pH 6.5 (5.0 - 8.0) 01/07/22 13:30 Ur Specific [place] 1.010 (1.000-1.030) 01/07/22 13:30 Urine Protein Negative (NEGATIVE) 01/07/22 13:30 Urine Glucose (UA) Negative (NEGATIVE) 01/07/22 13:30 Urine Ketones Negative (NEGATIVE) 01/07/22 13:30 Urine Blood Negative (NEGATIVE) 01/07/22 13:30 Urine Nitrite Negative (NEGATIVE) 01/07/22 13:30 Urine Bilirubin Negative (NEGATIVE) 01/07/22 13:30 Urine Urobilinogen Normal (NORMAL) 01/07/22 13:30 Ur Leukocyte Esterase Negative (NEGATIVE) 01/07/22 13:30 SARS-CoV-2 (PCR) Negative (NEGATIVE) 01/07/22 16:05 XRAY XRAY Interpreted by: Radiologist (REPORT NOTED.) EKG Rate: 60 [place]: Normal Rhythm: NSR Block: None Hypertrophy: None ST: Normal Opioid Opioid Risk Tool Age (Shady box if 16-45): No History of Preadolescent Sexual Abuse: No Total: 0 Total Score Risk Category: Low Risk Copyright: [facility] predicting aberrant behaviors Diagnosis Discharge Problem: Acute hypotension, Generalized weakness, Near syncope
[2022-01-07] MEDS ORDERED: NS 1,000 ML IV 1,000 ML ONE (13:32)
[2022-01-07] MEDS: NS 1,000 ML IV 1,000 ML IV SCH ×3 (13:51→23:30)
[2022-01-07 13:56] LABS: BASOPHILS # (AUTO) 0.1 X10^3/uL (0.0-0.1); BASOPHILS % (AUTO) 1.1 % (0.2-1.0); EOSINOPHILS # (AUTO) 0.1 x10^3/uL (0.0-0.2); EOSINOPHILS % (AUTO) 1.2 % (0.9-2.9); HEMATOCRIT 39.6 % (42.0-54.0); HEMOGLOBIN 13.4 g/dL (13.5-18.0); LYMPHOCYTES # (AUTO) 3.9 X10^3/uL (1.3-2.9); MEAN CORPUSCULAR HEMOGLOBIN 32.1 pg (27.0-34.0); MEAN CORPUSCULAR HGB CONC 33.9 g/dL (33.0-35.0); MEAN CORPUSCULAR VOLUME 94.9 fL (80.0-100.0); MEAN PLATELET VOLUME 9.1 fL (7.4-11.0); MONOCYTES # (AUTO) 0.7 x10^3/uL (0.3-0.8); MONOCYTES % (AUTO) 8.8 % (0.0-13.0); NEUTROPHILS # (AUTO) 3.6 x10^3/uL (2.2-4.8); NEUTROPHILS % (AUTO) 42.9 % (42.0-75.0); RED BLOOD COUNT 4.17 X10^6/uL (4.7-6.0); RED CELL DISTRIBUTION WIDTH 13.2 % (11.6-16.5); WHITE BLOOD COUNT 8.4 X10^3/uL (3.6-10.0)
[2022-01-07 13:58] LABS: BILIRUBIN,URINE NEGATIVE (NEGATIVE); BLOOD/HEMOGLOBIN,URINE NEGATIVE (NEGATIVE); GLUCOSE, URINE NEGATIVE (NEGATIVE); KETONES,URINE NEGATIVE (NEGATIVE); LEUKOCYTE ESTERASE ,URINE NEGATIVE (NEGATIVE); NITRITES,URINE NEGATIVE (NEGATIVE); PH,URINE 6.5 (5.0 - 8.0); PROTEIN,URINE NEGATIVE (NEGATIVE); UROBILINOGEN,URINE NORMAL (NORMAL)
[2022-01-07 14:01] LABS: APPEARANCE,URINE CLEAR (CLEAR); COLOR,URINE YELLOW (YELLOW)
--- NOTE | 2022-01-07 14:07 | RAD ---
HISTORYSOBSTUDYPortable AP chestCOMPARISONFebruary 2021FINDINGSHeart size normal. There is mild nonspecific interstitial prominence in the lungs which may be related to the previous COVID-19 pneumonia from 09/09/2021. There is no significant airspace involvement, pulmonary edema or pleural fluid.IMPRESSIONMild nonspecific interstitial pulmonary prominence. See above description.Electronically signed by: MALCOM MAURICIO (Jan 07, 2022 14:06:43)
[2022-01-07 14:19] LABS: ALANINE AMINOTRANSFERASE 39 Units/L (12-78); ALBUMIN 3.9 g/dL (3.4-5.0); ALKALINE PHOSPHATASE 71 Units/L (46-116); ASPARTATE AMINO TRANSFERASE 27 Units/L (15-37); BLOOD UREA NITROGEN 29 mg/dL (7-18); CARBON DIOXIDE 32.6 mmol/L (21-32); CHLORIDE 100 mmol/L (98-107); CKMB % 1.2 % (<4); CREATINE KINASE 85 Units/L (39-308); CREATINE KINASE MB < 1.0 ng/mL (0-4.0); CREATININE 1.59 mg/dL (0.70-1.30); SODIUM 139 mmol/L (136-145); TOTAL PROTEIN 7.2 g/dL (6.4-8.2); eGFR NON BLACK RACES 45 (>60)
[2022-01-07 20:43] LABS: CKMB % 1.4 % (<4); CREATINE KINASE 73 Units/L (39-308); CREATINE KINASE MB < 1.0 ng/mL (0-4.0)
[2022-01-08 02:16] LABS: BASOPHILS # (AUTO) 0.1 X10^3/uL (0.0-0.1); BASOPHILS % (AUTO) 1.4 % (0.2-1.0); EOSINOPHILS # (AUTO) 0.2 x10^3/uL (0.0-0.2); EOSINOPHILS % (AUTO) 2.6 % (0.9-2.9); HEMATOCRIT 38.9 % (42.0-54.0); HEMOGLOBIN 13.1 g/dL (13.5-18.0); LYMPHOCYTES # (AUTO) 3.2 X10^3/uL (1.3-2.9); LYMPHOCYTES % (AUTO) 40.5 % (21.0-51.0); MEAN CORPUSCULAR HGB CONC 33.8 g/dL (33.0-35.0); MEAN CORPUSCULAR VOLUME 94.6 fL (80.0-100.0); MONOCYTES # (AUTO) 0.7 x10^3/uL (0.3-0.8); NEUTROPHILS # (AUTO) 3.6 x10^3/uL (2.2-4.8); NEUTROPHILS % (AUTO) 46.5 % (42.0-75.0); RED BLOOD COUNT 4.11 X10^6/uL (4.7-6.0); WHITE BLOOD COUNT 7.8 X10^3/uL (3.6-10.0)
[2022-01-08 02:31] LABS: ALANINE AMINOTRANSFERASE 37 Units/L (12-78); ALBUMIN 3.5 g/dL (3.4-5.0); ALKALINE PHOSPHATASE 66 Units/L (46-116); ASPARTATE AMINO TRANSFERASE 22 Units/L (15-37); BLOOD UREA NITROGEN 23 mg/dL (7-18); CALCIUM 8.9 mg/dL (8.5-10.1); CARBON DIOXIDE 29.1 mmol/L (21-32); CHLORIDE 102 mmol/L (98-107); CREATININE 1.44 mg/dL (0.70-1.30); SODIUM 140 mmol/L (136-145); TOTAL PROTEIN 6.7 g/dL (6.4-8.2); eGFR NON BLACK RACES 50 (>60)
[2022-01-08 02:40] LABS: CKMB % 1.4 % (<4); CREATINE KINASE 74 Units/L (39-308); CREATINE KINASE MB < 1.0 ng/mL (0-4.0)
[2022-01-08] MEDS ORDERED: POTASSIUM CHLORIDE LIQ 20 MEQ UDC PO PRN (05:53)
[2022-01-08] MEDS ORDERED: POTASSIUM CHL 60 MEQ/NS 0.45% 500 ML IV PRN (05:53)
[2022-01-08] MEDS ORDERED: POTASSIUM CHL 40 MEQ/NS 0.45% 500 ML IV PRN (05:53)
[2022-01-08] MEDS ORDERED: MICRO K EXTEN CAP 10 MEQ PO PRN (05:53)
[2022-01-08] MEDS ORDERED: KLOR-CON PO PRN (05:53)
[2022-01-08] MEDS ORDERED: K-RIDER 10 MEQ/NS 100 ML 10 MEQ/100 ML BAG IV PRN (05:53)
[2022-01-08] MEDS: NS 1,000 ML IV 1,000 ML IV SCH ×4 (06:08→18:05)
[2022-01-08] MEDS: K-DUR TAB 20 MEQ PO PRN (06:27)
[2022-01-08] MEDS: LOVENOX INJ 40 MG SYR SC SCH (10:39)
[2022-01-08] MEDS ORDERED: ZANAFLEX PO PRN (16:01)
--- NOTE | 2022-01-08 17:30 | DR.H&P ---
H&P - History & Physical for Day of: H&P Date: 01/07/22 - Chief Complaint Chief Complaint: hypotension - History of Present Illness History of Present Illness: Patient is an 81 year old male who was admitted due to hypotension and weakness. Patient has a history of alziehmers and is occasionally confused at baseline. Spouse provided history. reports patient was in his normal state of health. States she and patient went to [place] Friday and while at [place] patient became very weak and sleepy. states they had to leave [place] early and patient had to be assisted by other men to his vehicle and again inside his home. states his bp was 60s/40s at that time when she checked. States she began making him drink fluids and BP improved to normal. States she has been giving him is BP meds as ordered. States on Friday BP was low again therefore she brought patient to ER. Patient reports generalized global weakness with hypotension. Denies dizziness, SOB, CP, YA or any other issues. states this has happened before in the past however is rare; last incident was 2018. No other concerns at present. PMH Armida HTN. PCP in [place]. - Past Medical History Past Medical History: Ventricular Tachycardia, Hypertension, Alzheimers - Past Surgical History Surgical History: Other - Family History Family Medical History: Coronary Artery Disease, Hypertension - Social History Does patient currently use any type of tobacco product: No Have you used tobacco products in the last 12 months: No Type of Tobacco Use: None Does any household member use tobacco: No Alcohol Use: None Drug Use: None - Medications Home Medications: meperidine [From Demerol] Allergy (Verified 09/09/21 16:27) CONTINUE taking the following medications hydrochlorothiazide 25 mg PO QAM 01/07/22 [History] lisinopril 40 mg PO HS 01/07/22 [History] tamsulosin [Flomax] 0.4 mg PO QHS 01/07/22 [History] tizanidine 4 mg PO TID PRN 01/07/22 [History] - Review of Systems Constitutional: See HPI Eyes: See HPI ENT: See HPI Respiratory: See HPI Cardiovascular: See HPI Gastrointestinal: See HPI Genitourinary: See HPI Musculoskeletal: See HPI Skin: See HPI Neurological: See HPI - Physical Exam Vital Signs: Temperature 99.9 F Pulse Rate [Right Radial] 115 Pulse Rate 69 Respiratory Rate 20 Blood Pressure [Right Arm] 143/78 Blood Pressure 113/64 O2 Sat by Pulse Oximetry 94 Oriented: Normal (Patient is alert and oriented at present. Spouse and patient report occasional confusion and forgetfulness. ) Eyes: Normal Ear: Normal Nose: Normal Throat: Normal Respiratory: Clear Throughout Cardiovascular: Normal : Normal Auscultation: Bowel Sounds: Normal Palpation: Normal Tenderness: Normal Skin: Normal Musculoskeletal: Normal Psychiatric: Normal Mood Description: Calm Affect: Normal Speech Pattern: Clear, Appropriate - Assessment/Plan (1) Hypotension Status: Acute Plan: Admit. IV fluids. Cultures. Tele. Cardiacs and EKGs. Hold BP meds (2) Syncope Status: Acute (3) History of hypertension Status: Acute (4) Weakness generalized Status: Acute - Allergies Allergies/Adverse Reactions: Allergies Allergy/AdvReac Type Severity Reaction Status Date / Time meperidine [From Demerol] Allergy Verified 09/09/21 16:27
--- NOTE | 2022-01-08 17:38 | PCM.PROG ---
Progress Note - Subjective Subjective: Patient is an 81 yo wm who was admitted as per hpi. Patient reports improvement in symptoms back to baseline. Patient and spouse report weakness has resolved. BP has been stable since admission. No new concerns at present. CT head, Echo, US carotids pending. Plan to discharge in am pending imaging studies. - Past Medical Family Social History Past Med/Fam/Surg Hx: No changes since H&P Allergies: Allergies meperidine [From Demerol] Allergy (Verified 09/09/21 16:27) - Review of Systems ROS: No change since H&P - Vital Signs and I&O's Vital Signs: Temperature 99.9 F Pulse Rate [Right Radial] 115 Pulse Rate 69 Respiratory Rate 20 Blood Pressure [Right Arm] 143/78 Blood Pressure 113/64 O2 Sat by Pulse Oximetry 94 Intake and Output: Intake & Output 01/05/22 01/06/22 01/07/22 01/08/22 23:59 23:59 23:59 23:59 Intake Total 930 / 930 6115 / 6115 Output Total 450 / 450 600 / 600 Balance 480 / 480 5515 / 5515 - Physical Exam Oriented: Normal (Patient is alert and oriented at present. Spouse and patient report occasional confusion and forgetfulness. ) Eyes: Normal Ear: Normal Nose: Normal Throat: Normal Respiratory: Normal Cardiovascular: Normal : Normal Auscultation: Bowel Sounds: Normal Palpation: Normal Tenderness: Normal Skin: Normal Musculoskeletal: Normal Psychiatric: Normal Mood Description: Calm Affect: Normal Speech Pattern: Clear, Appropriate - Laboratory and Diagnostics Result Diagrams: 01/08/22 02:00 01/08/22 07:34 Labs: Laboratory WBC 7.8 X10^3/uL (3.6-10.0) 01/08/22 02:00 RBC 4.11 X10^6/uL (4.7-6.0) L 01/08/22 02:00 Hgb 13.1 g/dL (13.5-18.0) L 01/08/22 02:00 Hct 38.9 % (42.0-54.0) L 01/08/22 02:00 MCV 94.6 fL (80.0-100.0) 01/08/22 02:00 MCH 32.0 pg (27.0-34.0) 01/08/22 02:00 MCHC 33.8 g/dL (33.0-35.0) 01/08/22 02:00 RDW 13.0 % (11.6-16.5) 01/08/22 02:00 Plt Count 209 X10^3/uL (150.0-450.0) 01/08/22 02:00 MPV 9.0 fL (7.4-11.0) 01/08/22 02:00 Neut % (Auto) 46.5 % (42.0-75.0) 01/08/22 02:00 Lymph % (Auto) 40.5 % (21.0-51.0) 01/08/22 02:00 [place] % (Auto) 9.0 % (0.0-13.0) 01/08/22 02:00 Eos % (Auto) 2.6 % (0.9-2.9) 01/08/22 02:00 Baso % (Auto) 1.4 % (0.2-1.0) H 01/08/22 02:00 Neut # (Auto) 3.6 x10^3/uL (2.2-4.8) 01/08/22 02:00 Lymph # (Auto) 3.2 X10^3/uL (1.3-2.9) H 01/08/22 02:00 [place] # (Auto) 0.7 x10^3/uL (0.3-0.8) 01/08/22 02:00 Eos # (Auto) 0.2 x10^3/uL (0.0-0.2) 01/08/22 02:00 Baso # (Auto) 0.1 X10^3/uL (0.0-0.1) 01/08/22 02:00 Absolute Nucleated RBC 0.0 /100WBC 01/08/22 02:00 Sodium 140 mmol/L (136-145) 01/08/22 02:00 Corrected Sodium TNP 01/08/22 02:00 Potassium 3.7 mmol/L (3.5-5.1) 01/08/22 07:34 Chloride 102 mmol/L (98-107) 01/08/22 02:00 Carbon Dioxide 29.1 mmol/L (21-32) 01/08/22 02:00 BUN 23 mg/dL (7-18) H 01/08/22 02:00 Creatinine 1.44 mg/dL (0.70-1.30) H 01/08/22 02:00 Est GFR (MDRD) Af Amer > 60 (>60) 01/08/22 02:00 Est GFR (MDRD) Non-Af 50 (>60) L 01/08/22 02:00 Glucose 89 mg/dL (65-99) 01/08/22 02:00 Calcium 8.9 mg/dL (8.5-10.1) 01/08/22 02:00 Corrected Calcium TNP 01/08/22 02:00 Magnesium 2.0 mg/dL (1.7-2.9) 01/08/22 02:00 Total Bilirubin 0.20 mg/dL (0.2-1.0) 01/08/22 02:00 AST 22 Units/L (15-37) 01/08/22 02:00 ALT 37 Units/L (12-78) 01/08/22 02:00 Alkaline Phosphatase 66 Units/L (46-116) 01/08/22 02:00 Creatine Kinase 74 Units/L (39-308) 01/08/22 02:00 CK-MB (CK-2) < 1.0 ng/mL (0-4.0) 01/08/22 02:00 CK/CKMB % Calc 1.4 % (<4) 01/08/22 02:00 Troponin I High Sens 13.5 ng/L (4.0-60.0) 01/08/22 02:00 B-Natriuretic Peptide 88.3 pg/mL (0-79) H 01/07/22 13:45 Total Protein 6.7 g/dL (6.4-8.2) 01/08/22 02:00 Albumin 3.5 g/dL (3.4-5.0) 01/08/22 02:00 Globulin 3.2 g/dL (2.5-4.5) 01/08/22 02:00 Albumin/Globulin Ratio 1.1 Ratio (1.1-2.1) 01/08/22 02:00 Specimen Type Clean catch urine 01/07/22 13:30 Urine Color Yellow (YELLOW) 01/07/22 13:30 Urine Appearance Clear (CLEAR) 01/07/22 13:30 Urine pH 6.5 (5.0 - 8.0) 01/07/22 13:30 Ur Specific [place] 1.010 (1.000-1.030) 01/07/22 13:30 Urine Protein Negative (NEGATIVE) 01/07/22 13:30 Urine Glucose (UA) Negative (NEGATIVE) 01/07/22 13:30 Urine Ketones Negative (NEGATIVE) 01/07/22 13:30 Urine Blood Negative (NEGATIVE) 01/07/22 13:30 Urine Nitrite Negative (NEGATIVE) 01/07/22 13:30 Urine Bilirubin Negative (NEGATIVE) 01/07/22 13:30 Urine Urobilinogen Normal (NORMAL) 01/07/22 13:30 Ur Leukocyte Esterase Negative (NEGATIVE) 01/07/22 13:30 SARS-CoV-2 (PCR) Negative (NEGATIVE) 01/07/22 16:05 - Plan (1) Hypotension Status: Acute Plan: Admit. IV fluids. Cultures. Tele. Cardiacs and EKGs. Hold BP meds (2) Syncope Status: Acute Plan: CT head wo. Echo. US carotids (3) History of hypertension Status: Chronic (4) Weakness generalized Status: Acute
[2022-01-08] MEDS: NAMENDA TAB 10 MG PO SCH (20:58)
[2022-01-08] MEDS ORDERED: EXELON PO SCH (21:00)
[2022-01-08] MEDS ORDERED: FLOMAX PO SCH (21:00)
[2022-01-08] MEDS ORDERED: ZESTRIL TAB 40 MG PO SCH (21:00)
[2022-01-09] MEDS: TYLENOL 325 MG TAB PO PRN ×2 (01:13→11:40)
[2022-01-09 05:02] LABS: BASOPHILS # (AUTO) 0.1 X10^3/uL (0.0-0.1); EOSINOPHILS # (AUTO) 0.2 x10^3/uL (0.0-0.2); EOSINOPHILS % (AUTO) 2.3 % (0.9-2.9); HEMATOCRIT 35.1 % (42.0-54.0); HEMOGLOBIN 11.7 g/dL (13.5-18.0); LYMPHOCYTES % (AUTO) 41.9 % (21.0-51.0); MEAN CORPUSCULAR HEMOGLOBIN 31.7 pg (27.0-34.0); MEAN CORPUSCULAR HGB CONC 33.5 g/dL (33.0-35.0); MEAN CORPUSCULAR VOLUME 94.7 fL (80.0-100.0); MEAN PLATELET VOLUME 9.4 fL (7.4-11.0); MONOCYTES # (AUTO) 0.7 x10^3/uL (0.3-0.8); MONOCYTES % (AUTO) 10.3 % (0.0-13.0); NEUTROPHILS # (AUTO) 3.1 x10^3/uL (2.2-4.8); NEUTROPHILS % (AUTO) 43.5 % (42.0-75.0); RED BLOOD COUNT 3.71 X10^6/uL (4.7-6.0); RED CELL DISTRIBUTION WIDTH 13.1 % (11.6-16.5); WHITE BLOOD COUNT 7.1 X10^3/uL (3.6-10.0)
[2022-01-09 05:16] LABS: ALANINE AMINOTRANSFERASE 32 Units/L (12-78); ALKALINE PHOSPHATASE 58 Units/L (46-116); ASPARTATE AMINO TRANSFERASE 21 Units/L (15-37); BLOOD UREA NITROGEN 16 mg/dL (7-18); CALCIUM 8.4 mg/dL (8.5-10.1); CARBON DIOXIDE 26.6 mmol/L (21-32); CHLORIDE 105 mmol/L (98-107); COR CA(FOR HYPOALB) 9.2 mg/dL (8.5-10.1); CREATININE 1.39 mg/dL (0.70-1.30); SODIUM 137 mmol/L (136-145); TOTAL PROTEIN 5.9 g/dL (6.4-8.2); eGFR NON BLACK RACES 52 (>60)
[2022-01-09 07:47] LABS: BILIRUBIN,URINE NEGATIVE (NEGATIVE); BLOOD/HEMOGLOBIN,URINE NEGATIVE (NEGATIVE); GLUCOSE, URINE NEGATIVE (NEGATIVE); KETONES,URINE NEGATIVE (NEGATIVE); LEUKOCYTE ESTERASE ,URINE NEGATIVE (NEGATIVE); NITRITES,URINE NEGATIVE (NEGATIVE); PROTEIN,URINE NEGATIVE (NEGATIVE); UROBILINOGEN,URINE NORMAL (NORMAL)
[2022-01-09 07:49] LABS: APPEARANCE,URINE CLEAR (CLEAR); COLOR,URINE YELLOW (YELLOW)
--- NOTE | 2022-01-09 08:28 | CT ---
HISTORYSYNCOPE, HYPOTENSION, GENERALIZED WEAKNESSSTUDYCT brain without IV contrastCOMPARISONNoneTECHNIQUEMultiple axial images of the brain were obtained without IV contrast. Dose reduction techniques including Automated Exposure Control (AEC) and adjustment of mA and kV were utilized.FINDINGSMild mucosal thickening is seen in the inferior aspect of the left maxillary sinus. No air-fluid levels are seen in the paranasal sinuses or mastoid air cells. No calvarial fracture is seen.No acute intracranial hemorrhage or mass effect is seen. The cerebral ventricles are normal in size. No evidence of acute CVA. Idiopathic calcifications are seen in the basal ganglia. Probable mild chronic small vessel ischemic changes are present in the white matter.IMPRESSIONLikely mild chronic small vessel ischemic changes without evidence of acute abnormality.Electronically signed by: Sean Joseph (Jan 09, 2022 08:26:34)
[2022-01-09] MEDS ORDERED: VITAMIN D3 25 mcg (1,000 UNITS) PO SCH (09:00)
[2022-01-09] MEDS ORDERED: COLACE CAP 100 MG PO SCH (09:00)
[2022-01-09] MEDS ORDERED: ZINC SULFATE PO SCH (09:00)
[2022-01-09] MEDS ORDERED: QUERCETIN PO SCH (09:00)
[2022-01-09] MEDS ORDERED: VITAMIN B COMPLEX PO SCH (09:00)
[2022-01-09] MEDS ORDERED: NEURONTIN CAP 300 MG PO SCH (09:00)
[2022-01-09] MEDS ORDERED: HYDROCHLOROTHIAZIDE 25 MG TAB PO SCH (09:00)
[2022-01-09] MEDS ORDERED: RUTIN 500 MG PO SCH (09:00)
[2022-01-09] MEDS ORDERED: CARDIZEM CD 240 MG 24-HR PO SCH (09:00)
[2022-01-09] MEDS ORDERED: MAG-OX TAB PO SCH (09:00)
[2022-01-09] MEDS ORDERED: ECHINACEA 400 MG PO SCH (09:00)
[2022-01-09] MEDS ORDERED: FLOMAX PO SCH (09:00)
[2022-01-09] MEDS: LOVENOX INJ 40 MG SYR SC SCH (09:13)
[2022-01-09] MEDS: K-DUR TAB 20 MEQ PO PRN (09:13)
[2022-01-09] MEDS: NAMENDA TAB 10 MG PO SCH (09:14)
--- NOTE | 2022-01-09 14:34 | VAS ---
CAROTID USCLINICAL INDICATION: NEAR SYNCOPE, HYPOTENSIONPROCEDURE: Pulsed wave and color-flow duplex imaging was utilized to evaluate the extracranial carotid arteries.COMPARISON:NoneFINDINGS:Right carotid:No hemodynamically significant stenosis involving the right carotid artery. The velocities are as follows:Distal CCA systolic velocity 57 cm/sec, ICA peak systolic velocity 38 cm/sec. Flow within the right vertebral and right ECA is directed antegrade.ICA/CCA ratio: 0.7Left carotid:No hemodynamically significant stenosis involving the left carotid artery. The velocities are as follows:Distal CCA systolic velocity 77 cm/sec, ICA peak systolic velocity 66 cm/sec. Flow within the left vertebral and left ECA is directed antegrade.ICA/CCA ratio: 0.9IMPRESSION:1. Normal peak systolic velocity corresponds to a less than 50% diameter stenosis of the right ICA.2. Normal peak systolic velocity corresponds to a less than 50% diameter stenosis of the left ICA.Electronically signed by: ROB SOLITARIO (Jan 09, 2022 14:32:31)
[2022-01-09 16:39] VITALS: BP 118/69
[2022-01-09 16:50] LABS: BILIRUBIN,URINE NEGATIVE (NEGATIVE); BLOOD/HEMOGLOBIN,URINE NEGATIVE (NEGATIVE); GLUCOSE, URINE NEGATIVE (NEGATIVE); KETONES,URINE NEGATIVE (NEGATIVE); LEUKOCYTE ESTERASE ,URINE NEGATIVE (NEGATIVE); NITRITES,URINE NEGATIVE (NEGATIVE); PROTEIN,URINE NEGATIVE (NEGATIVE); UROBILINOGEN,URINE NORMAL (NORMAL)
[2022-01-09] MEDS: NS 1,000 ML IV 1,000 ML IV SCH (16:53)
[2022-01-09 16:55] LABS: APPEARANCE,URINE CLEAR (CLEAR); COLOR,URINE YELLOW (YELLOW)
--- NOTE | 2022-01-17 11:39 | PCM.DCPLAN ---
Discharge Plan - Discharge Plan Hospital Course: Admit Date01/07/22 Discharge Date01/09/22 DOS01/09/22 Admit diagnosis(1) Hypotension (2) Syncope (3) History of hypertension (4) Weakness generalized Discharge diagnosis1) Hypotension (2) Syncope (3) History of hypertension (4) Weakness generalized Hospital Course Patient is an 81 year old male who was admitted due to hypotension and weakness. Patient has a history of alziehmers and is occasionally confused at baseline. Spouse provided history. reports patient was in his normal state of health. States she and patient went to congregational Friday and while at congregational patient became very weak and sleepy. states they had to leave congregational early and patient had to be assisted by other men to his vehicle and again inside his home. states his bp was 60s/40s at that time when she checked. States she began making him drink fluids and BP improved to normal. States she has been giving him is BP meds as ordered. States on Friday BP was low again therefore she brought patient to ER. Patient reports generalized global weakness with hypotension. Denies dizziness, SOB, CP, YA or any other issues. states this has happened before in the past however is rare; last incident was 2018. No other concerns at present. PMH Alzhiemeyosi, HTN. PCP in [place]. BP meds were held and adjusted. Patient was given IV fluids. CT head, echo , and US carotids did not reveal acute abnormality. Patient BP was within n ormal limits. Patient symptoms resolved. Patient was discharged home to follow up outpatient with PCP. Discharge time spent > 35 mins Disposition: HOME, SELF-CARE Condition: Stable Health Concerns: Post Hospitalization: new medications and changes needed to prevent readmission or further decline. Pt educated and given instructions on all concerns. Care Plan Goals: Problem: Fluid Volume Deficit Goal: Maintain/Improved Adequate hydration. Instructions: Follow provided instructions. Follow up with primary physician as directed. Contact primary care physician or report to the closest Emergency Room if condition worsens. Plan of Treatment: Continue with present treatment and follow up plan. Pt is to keep follow up appointment as instructed and take medications as ordered. Prescriptions: New diltiazem HCl 240 mg Capsule,Extended Release 24hr 240 mg PO DAILY RF: 0 tamsulosin 0.4 mg Capsule 0.4 mg PO QHS Qty: 30 RF: 0 Continued cholecalciferol (vitamin D3) [Vitamin D3] 50 mcg (2,000 unit) Capsule 50 mcg PO DAILY diltiazem HCl 360 mg Capsule,Extended Release 24 Hr 240 mg PO DAILY Qty: 30 RF: 0 docusate sodium [Stool Softener] 250 mg Capsule 250 mg PO DAILY echinacea 400 mg Capsule 400 mg PO DAILY gabapentin 300 mg capsule 300 mg PO DAILY hydrochlorothiazide 25 mg Tablet 25 mg PO QAM lisinopril 40 mg tablet 40 mg PO HS magnesium 250 mg Tablet 250 mg PO DAILY memantine 10 mg Tablet 10 mg PO BID [place] 3-6-9 1,200 mg Capsule 1 cap PO DAILY Quercetin 400 mg PO DAILY rivastigmine tartrate 3 mg Capsule 3 mg PO HS rutin 500 mg Tablet 500 mg PO DAILY tamsulosin [Flomax] 0.4 mg Capsule 0.4 mg PO QHS tizanidine 4 mg Capsule 4 mg PO TID PRN (Reason: Muscle Spasm) vitamin B complex [B Complex-Vitamin B12] Tablet 1 tab PO DAILY zinc 50 mg Tablet 60 mg PO DAILY Discontinued tamsulosin 0.4 mg Capsule 0.4 mg PO DAILY - Orders to Discharge Patient Discharge Orders: Discharge (Routine); Ordered 01/09/22 Ordered By: Sailaja Morris - Follow ups/Referrals Follow ups/Referrals: MATTHIAS APPLE [Primary Care Provider] - 01/17/22 9:20 am
== END 2022-01-09 18:05 | disposition home or self-care (01) ==
LOC: ER 10:58 → MED/SURG 10:58
PROVIDERS: ADMIT Internal Medicine; ATTEND Internal Medicine
DX: I95.89 Other hypotension; R53.1 Weakness; R94.4 Abnormal results of kidney function studies; Z20.822 Contact with and (suspected) exposure to COVID-19; I10 Essential (primary) hypertension; I25.10 Atherosclerotic heart disease of native coronary artery without angina pectoris; R06.02 Shortness of breath; G30.9 Alzheimer's disease, unspecified; R55 Syncope and collapse